=== PATIENT | male | born 1950 | race Caucasian/White ===

== ENCOUNTER 2016-11-15 07:40 | Day surgery (SDC) | payer MEDICARE, BC ==
[~2016-11-15] VITALS: Ht 180.3 cm; Wt 83.3 kg
[~2016-11-15 07:40] MED LIST: AMLO5TAB4 PO; ATOR10TA PO; CARV6.252 PO; IBUP200C62 PO; LIDOCAINE 1% (10mg/ml) 2ml SDV INJ ONE; LR 1,000 ML IV SCH; RIVA20TA PO
[2016-11-15 07:45] VITALS: Ht 180.3 cm; Wt 83.3 kg
--- OUTSIDE RECORDS SUMMARY | 2016-11-15 07:45 | XMS REPORT | Continuity of Care Document ---
Author Author [facility] Organization [facility] Address Unknown Phone Unavailable Allergies Active Description Code Type Severity Reaction Onset Reported/Identified Relationship to Patient Clinical Status Yes No Known Medication Allergies NKMA N/A N/A 06/16/2015 Yes No Known Medication Allergies NKMA N/A N/A 06/16/2015 Medications Problems Date Dx Coded Attending Type Code Diagnosis Diagnosed By 11/24/2015 Lachelle Lo Final R06.02 Shortness of breath 11/24/2015 Lachelle Lo Reason R42 Dizziness and giddiness 11/24/2015 Lachelle Lo Final T45.1X5A Adverse effect of antineoplastic and immunosuppressive drugs, initial encou Procedures Results Encounters ACCT No. Visit Date/Time Discharge Status Pt. Type Provider Facility Loc./Unit Complaint [id number] 10/14/2015 10:28:00 2015 23:59:00 DIS Outpatient Bettye Barone [facility] Post Op [id number] 08/01/2015 09:35:00 2014 23:59:00 DIS Outpatient Russ Noland [facility] inserrt port a cath dx colon ca [id number] 07/22/2015 10:11:00 2014 23:59:00 DIS Outpatient Bettye Barone [facility] Suture removal [id number] 07/09/2015 13:52:00 2014 23:59:00 DIS Outpatient Russ Noland [facility] WOUND EVAL. [id number] 07/04/2015 07:57:00 2014 23:59:00 DIS Outpatient Russ Noland [facility] dressing change [id number] 07/01/2015 12:54:00 2014 23:59:00 DIS Outpatient Russ Noland [facility] DRSG CHANGE WITH [id number] 06/30/2015 08:02:00 2014 23:59:00 DIS Outpatient Russ Noland [facility] DRESSING CHANGE [id number] 06/27/2015 07:53:00 2014 23:59:00 DIS Outpatient Ludin Festus [facility] DRESSING CHANGE [id number] 06/26/2015 07:58:00 2014 23:59:00 DIS Outpatient Ludin Festus [facility] DRSG CHANGE [id number] 06/25/2015 08:00:00 2014 23:59:00 DIS Outpatient Russ Noland [facility] DRSG CHANGE [id number] 06/24/2015 12:54:00 2014 23:59:00 DIS Outpatient Russ Noland [facility] EVAL ABD. WOUND [id number] 06/23/2015 08:01:00 2014 23:59:00 DIS Outpatient Russ Noland [facility] DRSG CHANGE [id number] 06/20/2015 07:55:00 2014 23:59:00 DIS Outpatient Bettye Barone [facility] DRSG CHANGE [id number] 06/19/2015 07:59:00 2014 23:59:00 DIS Outpatient Russ Noland [facility] DRSG CHANGE [id number] 06/18/2015 07:59:00 2014 23:59:00 DIS Outpatient Russ Noland [facility] DRSG CHANGE [id number] 06/17/2015 09:34:00 2014 23:59:00 DIS Outpatient Bettye Barone [facility] post op [id number] 06/16/2015 10:32:00 2014 23:59:00 DIS Outpatient Russ Noland [facility] INCISION DRAINING [id number] 08/05/2015 09:02:00 ACT Outpatient Bettye Barone [facility] Suture leakage
--- OUTSIDE RECORDS SUMMARY | 2016-11-15 07:45 | XMS REPORT | Continuity of Care Document ---
Author Author [facility] Organization [facility] Address Unknown Phone Unavailable Support Name Relationship Address Phone DILMA BROWN PA Caregiver [address] [place] [address] Unavailable DECEMBERRADHA DO Caregiver [address] [place] [address] Unavailable OSCAR GILLESPIE Next Of Kin [address] [place] [address] Insurance Providers Guarantor Cat Gillespie Address [address] [place] [address] Email DENIED/NO TO PT [facility] Policy Number [id number] Subscriber's Name Cat Gillespie Relationship 18 Self Group Number [id number] Payer Medicare Policy Number [id number] Subscriber's Name Cat Gillespie Relationship 18 Self Chief Complaint and Reason for Visit Chief Complaint GI Bleed Reason for Visit Anticoagulant effect 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 Medical Problem Onset Date Status Abnormal nuclear stress test Unknown Acute Anemia Unknown Acute Anticoagulant effect Unknown Acute Bradycardia Unknown Resolved Colon cancer Unknown Chronic Gastroenteritis and colitis, viral Unknown Acute History of colon cancer Unknown Resolved Hypertension Unknown Chronic Hypoglycemia Unknown Resolved Hypokalemia Unknown Acute Ileus Unknown Acute Imani-Gillis syndrome Unknown Acute Symptomatic bradycardia Unknown Resolved Medications Current Home Medications Medication Dose Units Route Directions Days Qty Instructions Start Date Amlodipine Besylate (Norvasc) 5 Mg Tablet 5 Mg Oral Daily Atorvastatin Calcium (Lipitor) 10 Mg Tablet 10 Mg Oral Daily 10/07 Carvedilol 6.25 Mg Tablet 1 Tab Oral Twice Daily With Meals BEST WITH FOOD. 09/26/15 Lisinopril 10 Mg Tablet 10 Mg Oral Twice A Day 180 09/26/15 Rivaroxaban (Xarelto) 20 Mg Tablet 1 Tab Oral Daily 30 Tablet 05/23 Past Home Medications Medication Directions Ordered Status Aspirin 81 Mg Tab.chew, 1 Tab Oral Daily 05/31/15 Discontinued Carvedilol 6.25 Mg Tablet, 2 Tab Oral Twice A Day 05/31/15 Discontinued Lisinopril 5 Mg Tablet, 5 Mg Oral Twice A Day 05/31/15 Discontinued Social History Social History Problem Response Recorded Date/Time Onset Date Status Hx Substance Use No 05/23/2016 10:55pm Not Applicable Not Applicable Hx Alcohol Use Y 1-2 DRINKS PER NIGHT 05/23/2016 10:55pm Not Applicable Not Applicable Has the pt used tobacco in the last 12 months No 09/29/2015 6:17am Not Applicable Not Applicable Quit (MM/YYYY) 1977 08/11/2015 8:06pm Not Applicable Not Applicable Tobacco Usage none 08/11/2015 8:06pm Not Applicable Not Applicable Query Response Start Date Stop Date Smoking Status Former smoker Hospital Discharge Instructions No hospital discharge instructions. Plan of Care Discharge Date 05/24/16 1:07am Disposition 01 DISCHARGED HOME, SELF-CARE Condition at Discharge Improved Instructions/Education Provided Viral Gastroenteritis Prescriptions See Medication Section Referrals DILMA BROWN Order Date: 3 Days Address: [address] [place] [id number] Note: Additional Instructions/Education Take the zofran as needed to improve your nausea. Continue to take your xarelto as prescribed. Follow up with your doctor. Care Plan and Goals Physician Care Plan Problem: Viral GE Goal: Follow up with primary care provider Instructions: Take medications and follow care plan as discussed/written Functional Status No functional status results. Allergies, Adverse Reactions, Alerts Allergen Type Severity Reaction Status Last Updated Grapes Allergy Unknown Active 05/23/16 Immunizations Query Response on File Recorded Date/Time Hx Influenza Vaccination No 09/29/15 6:17am Hx Pneumococcal Vaccination No 09/29/15 6:17am Hx Influenza Vaccination No 09/29/15 6:17am Vital Signs Acute Vital Signs Vital Response Date/Time Pulse Rate (adult) 83 bpm (60 - 100) 05/24/2016 1:07am Respiratory Rate 20 breaths/min (10 - 20) 05/24/2016 1:07am O2 Sat by Pulse Oximetry 97 % (90 - 100) 05/24/2016 1:07am Blood Pressure 157/75 mm Hg 05/24/2016 1:07am Height (Feet) 5 feet 05/23/2016 10:17pm Height (Inches) 11.00 inches 05/23/2016 10:17pm Weight (Kilograms) 79.000 kg 05/23/2016 10:17pm Body Mass Index (BMI) 24.0 05/23/2016 10:17pm Results Laboratory Results Test Name Result Units Flags Reference Collection Date/Time Result Date/ Time Comments White Blood Count 7.8 T/MM3 4.5-11.0 05/23/2016 11:53pm 05/24/2016 12: 05am Red Blood Count 4.24 M/MM3 L 4.50-5.90 05/23/2016 11:53pm 05/24/2016 12: 05am Hemoglobin 12.8 GM/DL L 13.5-17.5 05/23/2016 11:53pm 05/24/2016 12:05am Hematocrit 37.8 % L 41-53 05/23/2016 11:53pm 05/24/2016 12:05am Mean Corpuscular Volume 89.2 UM3 80-100 05/23/2016 11:53pm 05/24/2016 12:05am Mean Corpuscular Hemoglobin 30.2 UUG 26-34 05/23/2016 11:53pm 2015 12:05am Mean Corpuscular Hemoglobin Concent 33.9 GM/DL 31-37 05/23/2016 11:53pm 05/24/2016 12:05am RDW Standard Deviation 38.1 FL 36.9-50.2 05/23/2016 11:53pm 05/24/2016 12:05am Platelet Count 140 T/MM3 130-400 05/23/2016 11:53pm 05/24/2016 12:05am Mean Platelet Volume 9.0 UM3 L 9.4-12.4 05/23/2016 11:53pm 05/24/2016 12 :05am Neutrophils (%) (Auto) 81.4 % H 33-66 05/23/2016 11:53pm 05/24/2016 12: 05am Lymphocytes (%) (Auto) 8.6 % L 23-45 05/23/2016 11:53pm 05/24/2016 12: 05am Monocytes (%) (Auto) 8.8 % 0-9.0 05/23/2016 11:53pm 05/24/2016 12:05am Eosinophils (%) (Auto) 0.6 % 0-4 05/23/2016 11:53pm 05/24/2016 12:05am Basophils (%) (Auto) 0.5 % 0-2 05/23/2016 11:53pm 05/24/2016 12:05am Immature Granulocyte % (Auto) 0.1 % 0.0-0.5 05/23/2016 11:53pm 2015 12:05am Absolute Neutrophils (auto) 6.4 T/MM3 1.8-7.7 05/23/2016 11:53pm 2015 12:05am Absolute Lymphocytes (auto) 0.7 T/MM3 L 1-4.8 05/23/2016 11:53pm 2015 12:05am Absolute Monocytes (auto) 0.7 T/MM3 0-0.8 05/23/2016 11:53pm 2015 12:05am Absolute Eosinophils (auto) 0.1 T/MM3 0-0.5 05/23/2016 11:53pm 2015 12:05am Absolute Basophils (auto) 0.0 T/MM3 0-0.2 05/23/2016 11:53pm 2015 12:05am Absolute Immature Granulocyte (auto 0.01 T/MM3 0.00-0.03 05/23/2016 11: 53pm 05/24/2016 12:05am Icterus Index < 2 0-7 05/23/2016 11:53pm 05/24/2016 12:15am Chemistry Specimen Hemolysis < 15 0-25 05/23/2016 11:53pm 05/24/2016 12:15am 0-25: Specimen Exhibited No Hemolysis. Turbidity < 20 0-20 05/23/2016 11:53pm 05/24/2016 12:15am Sodium Level 138 MEQ/L 134-144 05/23/2016 11:53pm 05/24/2016 12:15am Potassium Level 3.7 MEQ/L 3.6-5 05/23/2016 11:53pm 05/24/2016 12:15am Chloride Level 102 MEQ/L 98-107 05/23/2016 11:53pm 05/24/2016 12:15am Carbon Dioxide Level 27 MEQ/L 22-30 05/23/2016 11:53pm 05/24/2016 12: 15am Anion Gap 9 MEQ/L 5-15 05/23/2016 11:53pm 05/24/2016 12:15am Blood Urea Nitrogen 9.0 MG/DL 9-20 05/23/2016 11:53pm 05/24/2016 12: 15am Creatinine 0.6 MG/DL L 0.8-1.5 05/23/2016 11:53pm 05/24/2016 12:15am BUN/Creatinine Ratio 15 RATIO 6-26 05/23/2016 11:53pm 05/24/2016 12: 15am Glomerular Filtration Rate Calc 135 05/23/2016 11:53pm 05/24/2016 12:15am Glucose Level 113 MG/DL H 75-110 05/23/2016 11:53pm 05/24/2016 12:15am Calculated Osmolality 266 MOSM/KG 261-280 05/23/2016 11:53pm 2015 12:15am Calcium Level 9.2 MG/DL 8.4-10.2 05/23/2016 11:53pm 05/24/2016 12:15am Total Bilirubin 1.40 MG/DL H 0.20-1.30 05/23/2016 11:53pm 05/24/2016 12: 15am Alkaline Phosphatase 88 U/L 38-126 05/23/2016 11:53pm 05/24/2016 12: 15am Total Protein 7.1 G/DL 6.3-8.2 05/23/2016 11:53pm 05/24/2016 12:15am Albumin 4.0 G/DL 3.5-5.0 05/23/2016 11:53pm 05/24/2016 12:15am Globulin 3.1 G/DL 2.4-3.6 05/23/2016 11:53pm 05/24/2016 12:15am Albumin/Globulin Ratio 1.3 RATIO 1.1-2.2 05/23/2016 11:53pm 05/24/2016 12:15am Aspartate Amino Transf (AST/SGOT) 44 U/L 17-59 05/23/2016 11:53pm 05/24 12:15am Alanine Aminotransferase (ALT/SGPT) 35 U/L 21-72 05/23/2016 11:53pm 10/2015 12:15am Lipase 58 U/L 23-300 05/23/2016 11:53pm 05/24/2016 12:15am Urine Collection Type CLEANCATCH-MIDSTREAM 05/24/2016 12:07am 05/24 12:44am Urine Color YELLOW YELLOW 05/24/2016 12:07am 05/24/2016 12:44am Urine Turbidity CLEAR CLEAR 05/24/2016 12:07am 05/24/2016 12:44am Urine Specific [place] 1.010 L 1.015-1.025 05/24/2016 12:07am 2015 12:44am Urine pH 7.0 5.0-8.0 05/24/2016 12:07am 05/24/2016 12:44am Urine Leukocyte Esterase NEGATIVE NEGATIVE 05/24/2016 12:07am 2015 12:44am Urine Nitrite NEGATIVE NEGATIVE 05/24/2016 12:07am 05/24/2016 12: 44am Urine Protein TRACE A NEGATIVE 05/24/2016 12:07am 05/24/2016 12:44am Urine Glucose (UA) NEGATIVE NEGATIVE 05/24/2016 12:07am 05/24/2016 12 :44am Urine Ketones NEGATIVE NEGATIVE 05/24/2016 12:07am 05/24/2016 12: 44am Urine Urobilinogen 0.2 EU/DL NORMAL 05/24/2016 12:07am 05/24/2016 12: 44am Urine Bilirubin NEGATIVE NEGATIVE 05/24/2016 12:07am 05/24/2016 12: 44am Urine Blood TRACE-LYSED A NEGATIVE 05/24/2016 12:07am 05/24/2016 12: 44am Urinalysis Comment MICROSCOPIC NOT IND. 05/24/2016 12:07am 2015 12:44am Procedures Procedure Status Date Provider(s) CT THORAX W/DYE Completed 03/23/16 CT ABD & PELV W/CONTRAST Completed 03/23/16 788747"INJECTION, HEPARIN SODIUM, (HEPARIN LOCK FLUSH), PER Completed [id number]"INFUSION, NORMAL SALINE SOLUTION , 250 CC" Completed 03/23/16 340344"LOW OSMOLAR CONTRAST MATERIAL, 300-399 MG/ML IODINE C Completed Encounters Encounter Location Arrival/Admit Date Discharge/Depart Date Attending Provider Departed Emergency Room [facility] 05/23/16 10:09pm 05/24/16 1: 07am RADHA ORELLANA DO Registered Clinic [facility] 03/23/16 7:50am BEN REED MD Recent Diagnosis
[2016-11-15 07:47] VITALS: BP 137/71; PULSE 82; RESP 16; TEMP 98.3; O2SAT 97
--- NOTE | 2016-11-15 07:58 | NUR ---
PORT ACCESS ANESTHESIA OKAY FOR RN TO ACCESS PORT FOR ANESTHESIA DURING CASE.
--- NOTE | 2016-11-15 09:49 | ANESPREOP ---
Anesthesia Record Date and Time DATE: 11/15/16 TIME: 09:46 Pre-Op Diagnosis hx. of colon ca Proposed Surgical Procedure COLONOSCOPY Allergies: Coded Allergies: grape (Unverified Allergy, Unknown, 05/23/16) Ht/Wt/BMI Height: 5 ' 11.00 " Weight: 83.300 kg BMI: 25.6 kg/m2 Vital Signs Date Time Temp Pulse Resp B/P Pulse Ox O2 Delivery O2 Flow Rate FiO2 11/15/16 07:47 98.3 82 16 137/71 97 Room Air Medications Inpatient Medications Current Medications Medications (Trade) Dose Ordered Sig/Rosendo Start Time Stop Time Status Last Admin Dose Admin Lactated Ringer's (Lactated Ringers) 1,000 ml @ 30 mls/hr Q24H 11/15/16 07:00 11/15/16 08:08 30 MLS/HR Amlodipine Besylate (Norvasc) 5 Mg Tablet, 5 MG PO DAILY, (Reported) Last Taken: on 11/15/16 0630 Atorvastatin Calcium (Lipitor) 10 Mg Tablet, 10 MG PO DAILY, (Reported) Last Taken: on 11/14/16 0800 Carvedilol (Carvedilol) 6.25 Mg Tablet, 1 TAB PO BIDWM, (Reported) BEST WITH FOOD. Last Taken: on 11/15/16 0630 Ibuprofen (Ibuprofen) 200 Mg Capsule, 2 CAP PO Q4H PRN for PAIN, (Reported) Last Taken: on Unknown Date & Time Rivaroxaban (Xarelto) 20 Mg Tablet, 1 TAB PO DAILY, (Reported) Last Taken: on 11/12/16 Currently on Beta Cas: Yes Beta Cas Last Taken: COREG 11/15/16 @ 0630 Medical/Surgical History Anesthesia PMH: Reports: *Hypertension, Cancer (COLON CA-RESECTION), Clotting Problems (ON XARELTO), Obesity, Denies: *Diabetes, *GA, Anesthesia Reactions ( NO AIRWAY ISSUES KNOWN), Arthritis, Asthma, Blood Transfusion Reac, CHF, COPD, CVA/Stroke/TIA, Glaucoma, Malignant Hyperthermia, Pacemaker, Renal Disease, Seizures, Sleep Apnea, Thyroid Disease Smoking Status: Former smoker Has pt. smoked today?: No # of Packs per Day: 1 # of Years: 5 Use Chewing Tobacco?: No Second Hand Exposure: No Substance Use Type: does not use Past Surgical History Orthopedic Surgeries: Yes - LEFT ACHILLES TENDON Abdominal Surgeries: Yes - LAPAROTOMY, RESECTION OF DESCENDING COLON PER H&P Genitourinary Surgeries: No Cardiac Surgeries: No Endocrine Surgeries: No Reproductive Surgeries: No Neurological Surgeries: No Ear Surgeries: No Nose Surgeries: No Throat Surgeries: No Other Surgeries: - BILAT CATARACTS, Anesthesia Adverse Reactions: FOUND none Family Hx of Anesthesia Advers: none Hx of Motion Sickness: No Pertinent Findings EKG Rhythm: Sinus Rhythm Physical Exam Respiratory: Bilat breath sounds equal, Lungs clear Cardiovascular: FOUND Regular rate, rhythm, FOUND No murmur Airway Assessment Mallampati Score: II TMD: 3 Fingerbreadths Neck Extension: Fair Overall Assessment: No Airway Concerns ASA: 3 Plan Anesthesia Plan: TIVA Discussion Discussed risks/options/alternatives of anesthesia and questions answered. Patient consents. Nursing pain assessment noted. Present: Spouse Attestation Statement Prior to the delivery of any anesthetic medication, I examined the patient, developed the plan, obtained the patient's consent and discussed the risk and benefits of the procedure with the patient/guardian. FESTUS JUNIOR CRNA Nov 15, 2016 09:48
[2016-11-15 10:15] VITALS: BP 129/61; PULSE 77; RESP 16; TEMP 98.7; O2SAT 99
--- NOTE | 2016-11-15 10:26 | ANESPO ---
Post-Op Note Date 11/15/16 Time: 10:25 Status Pt Participated in Evaluation: Pt participated in person Vital Signs Date Time Temp Pulse Resp B/P Pulse Ox O2 Delivery O2 Flow Rate FiO2 11/15/16 07:47 98.3 82 16 137/71 97 Room Air Respiratory Function: Airway patent, Regular respirations Cardiovascular Function: Regular pulse Mental Status: Alert/oriented Pain Level Intensity: 0 Hydration: Taking po fluids, IV infusing Complications during Recovery None apparent Post-Anesthesia Notes pt. angel. well Follow-Up Instructions Instructions Per Surgeon Additional Information none FESTUS JUNIOR CRNA Nov 15, 2016 10:26
[2016-11-15 10:30] VITALS: BP 141/69; PULSE 63; RESP 15; O2SAT 98
[2016-11-15 10:45] VITALS: BP 151/72; PULSE 70; RESP 21; O2SAT 97
--- NOTE | 2016-11-15 15:11 | OPNOTEF ---
DATE OF SERVICE 11/15/2016 SURGEON Russ Chisholm MD PREOPERATIVE DIAGNOSIS Personal history for colon cancer. POSTOPERATIVE DIAGNOSIS Personal history for colon cancer, normal colonoscopy. PROCEDURE Colonoscopy ANESTHESIA TIVA BRIEF HISTORY/INDICATIONS The Jose Miguel is a 66-year-old gentleman who in 2014 had presented with a colonic obstruction and had undergone a colonoscopy revealing a mass near the hepatic flexure. The patient did undergo an extended right hemicolectomy. He did require postoperative chemotherapy. Patient presents today to undergo a followup colonoscopy. For completeness please refer to notes included in the patient's chart. FINDINGS Upon colonoscopy there was no evidence for angiodysplastic lesions, polyps, diverticula or anahy allergies. Prior enterocolonic anastomosis was well visualized and was without any evidence for recurrence. DESCRIPTION OF PROCEDURE After informed consent was obtained, the patient was brought to the endoscopy suite and placed in left lateral decubitus position. The patient subsequently underwent total intravenous anesthesia by the nurse gum machine operator per my request. Formal time-out was then completed. Next, a digital rectal examination was performed. Normal sphincter tone. No rectal mass was appreciated. An Olympus colonoscope was inserted in the anus and advanced with the lumen of the colon under direct visualization at all times till the prior enterocolonic anastomosis could be seen. One could see the small bowel mucosa just beyond the anastomosis. There was no evidence for recurrence at the anastomotic site. Scope was then slowly withdrawn again maintaining visualization of the lumen at all times. As stated above, the entire colon was without evidence for angiodysplastic lesions, polyps, diverticula or anahy allergies. Once the colonoscope was withdrawn back to the rectal vault, a J-maneuver was performed. No worrisome perianal pathology was noted. Scope was allowed to straighten and withdrawn through the anal verge. The patient tolerated the procedure without difficulty and was sent back to the preop area in stable condition. Secondary to the absence of findings upon this colonoscopy, I would recommend the patient undergo a repeat colonoscopy at a 3-year interval. If patient still is without any evidence for metachronous colonic polyps, then I do believe we could increase his timeframe to an every 5-year basis thereafter. AMOLD
== END 2016-11-15 10:55 | disposition home or self-care (01) ==
LOC: NSC 07:40
PROVIDERS: ATTEND Surgery
DX: Z12.11 Encounter for screening for malignant neoplasm of colon (principal); Z85.038 Personal history of other malignant neoplasm of large intestine; Z90.49 Acquired absence of other specified parts of digestive tract; Z79.899 Other long term (current) drug therapy; Z79.02 Long term (current) use of antithrombotics/antiplatelets
CPT/HCPCS: G0105; J1642; J7120